=== PATIENT | female | born 1995 | race African-American/Black ===

== ENCOUNTER 2017-02-17 12:08 | Emergency (ER) | payer MEDICAID, MEDICARE ==
[~2017-02-17] VITALS: Ht 154.9 cm; Wt 91.0 kg
[2017-02-17 12:42] VITALS: BP 109/77
[2017-02-17] MEDS ORDERED: PNV1TABL76 MT (12:50)
== END 2017-02-17 20:10 | disposition left against medical advice (07) ==
LOC: ER 20:09
DX: Z53.21 Procedure and treatment not carried out due to patient leaving prior to being seen by health care provider (principal)

== ENCOUNTER 2017-06-08 09:57 | Emergency (ER) | payer MEDICAID, OTHER ==
[~2017-06-08] VITALS: Ht 152.4 cm; Wt 95.0 kg
[~2017-06-08 09:57] MED LIST: PNV1TABL76 MT
[2017-06-08 13:44] VITALS: BP 102/86
== END 2017-06-08 13:45 | disposition home or self-care (01) ==
LOC: ER 13:07
DX: K64.9 Unspecified hemorrhoids (principal); D57.1 Sickle-cell disease without crisis; Z90.49 Acquired absence of other specified parts of digestive tract; Z88.5 Allergy status to narcotic agent
CPT/HCPCS: 99282

== ENCOUNTER 2018-01-03 07:59 | Emergency (ER) | payer MEDICAID, OTHER ==
[~2018-01-03] VITALS: Ht 160 cm; Wt 86.0 kg
[2018-01-03 09:42] VITALS: BP 121/71
== END 2018-01-03 11:26 | disposition home or self-care (01) ==
LOC: ER 09:54
DX: L03.113 Cellulitis of right upper limb (principal); Z90.49 Acquired absence of other specified parts of digestive tract; Z88.5 Allergy status to narcotic agent
CPT/HCPCS: 99283

== ENCOUNTER 2019-12-07 09:20 | Emergency (ER) | payer OTHER ==
[~2019-12-07] VITALS: Ht 154.9 cm; Wt 106.0 kg
[2019-12-07] MEDS ORDERED: SODIUM CHLORIDE 0.9% 1,000 ML IV ONE (13:44)
[2019-12-07] MEDS ORDERED: KETOROLAC 30MG/ML VIAL IV STA (13:44)
[2019-12-07 15:02] LABS: HEMATOCRIT. 31.1 % (36.0-48.0); HEMOGLOBIN. 10.7 g/dL (12.0-16.0); MEAN CORPUSCULAR HEMOGLOBIN 24.2 pg (28.0-32.0); MEAN CORPUSCULAR VOLUME 70.1 fL (81.0-99.0); MEAN PLATELET VOLUME 6.7 fl (7.4-10.4); PLATELET 538 x1000/uL (130-400); RED BLOOD CELL COUNT 4.44 mill/uL (4.2-5.4); RED CELL DISTRIBUTION WIDTH 20.3 % (11.6-14.6)
[2019-12-07 15:08] LABS: CHLORIDE 109 mEq/L (98-107)
[2019-12-07 15:24] LABS: HCG SCREEN NEGATIVE
[2019-12-07 17:02] LABS: PLATELET ESTIMATE INCREASED
[2019-12-07 17:15] VITALS: BP 129/65
== END 2019-12-07 17:20 | disposition home or self-care (01) ==
LOC: ER 09:20
DX: R07.89 Other chest pain (principal); D50.9 Iron deficiency anemia, unspecified
CPT/HCPCS: 36415; 71045; 80053; 83690; 83880; 84484; 84703; 85025; 85044; 85379; 93005; 96374; 99284; J1885; J7030

== ENCOUNTER 2022-05-31 23:44 | Emergency (ER) | payer MEDICAID, OTHER ==
[~2022-05-31] VITALS: Ht 154.9 cm; Wt 110.0 kg
[2022-05-31 23:52] VITALS: BP 117/83
[2022-06-01] MEDS ORDERED: GUAI600T26 MT (02:35)
== END 2022-06-01 02:36 | disposition home or self-care (01) ==
LOC: ER 23:44
DX: B34.9 Viral infection, unspecified (principal); Z90.49 Acquired absence of other specified parts of digestive tract; Z98.890 Other specified postprocedural states; Z20.822 Contact with and (suspected) exposure to COVID-19
CPT/HCPCS: 87426; 99283; C9803

== ENCOUNTER 2023-02-11 18:17 | Emergency (ER) | payer MEDICAID, OTHER ==
[~2023-02-11] VITALS: Ht 152.4 cm; Wt 113.0 kg
[~2023-02-11 18:17] MED LIST changes: +GUAI600T26 MT
[2023-02-11] MEDS ORDERED: IBUPROFEN 600MG TABLET PO ONE (19:30)
[2023-02-11 19:42] VITALS: BP 162/110
[2023-02-11] MEDS ORDERED: IBUPROFEN 600MG TABLET PO NR (21:45)
[2023-02-11] MEDS ORDERED: PENICILLIN G BENZATHINE 1,200,000 UNITS/2ML SYR IM ONE (22:30)
[2023-02-11] MEDS ORDERED: IBUP-2029 MT (22:33)
== END 2023-02-11 22:46 | disposition home or self-care (01) ==
LOC: ER 18:17
DX: J02.0 Streptococcal pharyngitis (principal)
CPT/HCPCS: 70360; 87430; 96372; 99284; J0561; Z7610

== ENCOUNTER 2023-06-27 00:37 | Emergency (ER) | payer OTHER ==
[~2023-06-27] VITALS: Ht 152.4 cm; Wt 106.0 kg
[~2023-06-27 00:37] MED LIST changes: +IBUP-2029 MT
[2023-06-27 01:02] VITALS: O2SAT 100
[2023-06-27] MEDS ORDERED: DIPH25CA83 MT (07:14)
[2023-06-27] MEDS ORDERED: ACYC200C31 MT (07:14)
[2023-06-27] MEDS ORDERED: TOPUD MT (07:14)
[2023-06-27] MEDS ORDERED: IBUP-1525 MT (07:14)
[2023-06-27 07:24] VITALS: BP 135/77; PULSE 90; RESP 16; TEMP 98.5
== END 2023-06-27 07:28 | disposition home or self-care (01) ==
LOC: ER 00:37
DX: R21 Rash and other nonspecific skin eruption (principal); D57.1 Sickle-cell disease without crisis; Z88.5 Allergy status to narcotic agent
CPT/HCPCS: 81025; 99282

== ENCOUNTER 2023-10-26 17:52 | Emergency (ER) | payer OTHER ==
[~2023-10-26] VITALS: Ht 170.2 cm; Wt 90.0 kg
[~2023-10-26 17:52] MED LIST changes: +ACYC200C31 MT; +DIPH25CA83 MT; +IBUP-1525 MT; +TOPUD MT
[2023-10-26 18:00] VITALS: BP 150/111; PULSE 121; RESP 20; TEMP 99.3; O2SAT 97
[2023-10-26] MEDS ORDERED: BENZONATATE 200MG CAPSULE PO ONE (20:45)
[2023-10-26] MEDS ORDERED: BENZ1LOZ73 MT (20:49)
[2023-10-26] MEDS ORDERED: BENZ200C52 MT (20:49)
== END 2023-10-26 21:05 | disposition home or self-care (01) ==
LOC: ER 17:52
DX: J02.0 Streptococcal pharyngitis (principal); R19.7 Diarrhea, unspecified; D57.1 Sickle-cell disease without crisis; Z90.49 Acquired absence of other specified parts of digestive tract; Z90.89 Acquired absence of other organs; Z20.822 Contact with and (suspected) exposure to COVID-19
CPT/HCPCS: 99284; 71045; 87426; 81025; 87430; 87070; 87804 ×2; C9803

== ENCOUNTER 2025-01-09 04:47 | Emergency (ER) | payer MEDICAID, OTHER ==
[~2025-01-09] VITALS: Ht 154.9 cm; Wt 115.0 kg
[~2025-01-09 04:47] MED LIST changes: +BENZ1LOZ73 MT; +BENZ200C52 MT
[2025-01-09 05:02] VITALS: O2SAT 100
[2025-01-09 05:06] VITALS: BP 108/81; PULSE 79; RESP 18; TEMP 36.9; O2SAT 100
[2025-01-09] MEDS: SODIUM CHLORIDE 0.9% 1,000 ML IV ONE (06:37)
[2025-01-09] MEDS: KETOROLAC 30MG/ML VIAL IV STA (06:39)
[2025-01-09] MEDS: ONDANSETRON HCL 4MG/2ML INJ IV STA (06:41)
[2025-01-09 07:04] LABS: CHLORIDE 111 mEq/L (98-107); POTASSIUM 5.4 mEq/L (3.5-5.1); SODIUM 140 mEq/L (136-145)
[2025-01-09 07:05] LABS: CARBON DIOXIDE 22 mEq/L (21-32)
[2025-01-09 07:06] LABS: CALCIUM 8.8 mg/dL (8.7-10.4); HEMATOCRIT. 26.7 % (36.0-48.0); HEMOGLOBIN. 9.1 g/dL (12.0-16.0); MEAN CORPUSCULAR HEMOGLOBIN 23.7 pg (28.0-32.0); MEAN CORPUSCULAR VOLUME 69.7 fL (81.0-99.0); MEAN PLATELET VOLUME 7.3 fl (7.4-10.4); PLATELET 455 x1000/uL (130-400); RED BLOOD CELL COUNT 3.83 mill/uL (4.2-5.4); RED CELL DISTRIBUTION WIDTH 22.5 % (11.6-14.6); WHITE BLOOD COUNT 9.2 x1000/uL (4.5-11.0)
[2025-01-09 07:12] LABS: ALANINE AMINOTRANSFERASE 14 IU/L (10-49); ALBUMIN 3.9 g/dL (3.2-4.8); ASPARTATE AMINOTRANSFERASE 43 IU/L (<34); CREATININE 0.8 mg/dL (0.6-1.0); GLUCOSE 86 mg/dL (70-105); UREA NITROGEN BLOOD 6 mg/dL (9-23)
[2025-01-09 07:13] LABS: BILIRUBIN DIRECT 0.2 mg/dL (<=3.0); BILIRUBIN TOTAL 1.1 mg/dL (0.1-1.0); PROTEIN TOTAL 7.3 g/dL (6.0-8.3)
[2025-01-09 07:15] LABS: DIFFERENTIAL COMMENT 1
[2025-01-09 07:32] LABS: CLARITY URINE TURBID (CLEAR); COLOR URINE YELLOW (YELLOW); GLUCOSE URINE NEGATIVE (NEGATIVE); KETONES URINE NEGATIVE (NEGATIVE); LEUKOCYTE ESTERASE URINE 1+ (NEGATIVE); NITRITE URINE NEGATIVE (NEGATIVE); OCCULT BLOOD URINE NEGATIVE (NEGATIVE); PH URINE 5.5 (4.5-8.0); PROTEIN URINE NEGATIVE (NEGATIVE); SPECIFIC GRAVITY URINE 1.012 (1.005-1.030); UROBILINOGEN URINE 0.2 E.U./dL (0.2-1.0)
[2025-01-09 07:52] LABS: SQUAMOUS EPITHELIAL CELL URINE 3+ /lpf (RARE/1+)
[2025-01-09 07:55] LABS: BACTERIA URINE 4+; YEAST URINE NONE SEEN
[2025-01-09] MEDS ORDERED: TOPUD PO (08:21)
[2025-01-09] MEDS ORDERED: ONDA4TAB50 PO (08:21)
[2025-01-09 08:32] LABS: ANISOCYTOSIS 2+; MICROCYTOSIS 2+; PLATELET ESTIMATE SLIGHTLY INCREASED
[2025-01-09 08:45] LABS: PROTHROMBIN TIME 10.7 sec (9.6-11.0)
== END 2025-01-09 08:44 | disposition home or self-care (01) ==
LOC: ER 04:47
DX: R10.84 Generalized abdominal pain (principal); R11.2 Nausea with vomiting, unspecified; D57.1 Sickle-cell disease without crisis; Z90.49 Acquired absence of other specified parts of digestive tract; Z90.89 Acquired absence of other organs; Z88.5 Allergy status to narcotic agent
CPT/HCPCS: 99284; 96374; 96361; 96375; 80076; 80048; 81003; 81025; 83690; 85025; 85610; 36415; J1885; J2405; J7030